=== PATIENT | female | born 1995 | race Caucasian/White ===

== ENCOUNTER 2018-06-12 09:56 | Emergency (ER) | payer SELFPAY ==
[2018-06-12 10:10] VITALS: TEMP 98.2
--- NOTE | 2018-06-12 10:13 | ED.PDOC ---
History of Present Illness - General Chief Complaint: ENT Problem Stated Complaint: sore throat,vomiting Time Seen by Provider: 06/12/18 10:13 Source: patient Exam Limitations: no limitations - History of Present Illness Initial Comments: Alie Guillermo 22 y/o female came to ER with achy throat starting this am and also vomited 5 x and had watery diarrhea x 1 .Denies ill contact;no foreign travel,;no recent antibiotics.Presently no N/V/D while in ER. Timing/Duration: abrupt, this morning Severity: moderate EENT Location: throat Prearrival Treatment: no prearrival treatment Presenting Symptoms: see hpi Improving Factors: nothing Worsening Factors: nothing Associated Symptoms: other - see hpi Allergies/Adverse Reactions: Allergies NO KNOWN ALLERGY Allergy (Verified 06/12/18 10:10) Home Medications: Ambulatory Orders Albuterol Inhaler [Ventolin Hfa Inhaler] 108 mcg IN PRN 06/12/18 Etonogestrel [Nexplanon] 68 mg SC 06/12/18 Sulfa/Trimeth 800/160 (Ds) Tab [Bactrim DS] 1 tablet PO BID #14 tab 06/12/18 predniSONE 10 mg PO BID #20 tab 06/12/18 Review of Systems - Review of Systems Constitutional: States: no symptoms reported EENTM: States: see HPI, throat pain Respiratory: States: see HPI - asthma Cardiology: States: no symptoms reported Gastrointestinal/Abdominal: States: see HPI Genitourinary: States: no symptoms reported Musculoskeletal: States: no symptoms reported Skin: States: no symptoms reported Neurological: States: no symptoms reported Endocrine: States: no symptoms reported Past Medical History (General) - Patient Medical History Hx Stroke: No Hx Asthma: Yes Hx Congestive Heart Failure: No Hx Diabetes: No Surgical History: no surgical history - Vaccination History Hx Influenza Vaccination: No - Social History Hx Tobacco Use: Yes Years Tobacco Use: 4 Cigarettes Packs Per Day: 20 - Female History Patient is a Female of Child Bearing Age (10 -59 yrs old): Yes - is on Control Hx Last Menstrual Period: 05/19/17 - Transdermal contraceptive implant Patient : No Family Medical History - Family History Mother Family History: Unknown Living Status: Unknown Hx Family Asthma: Yes - mom Hx Family Hypertension: Yes - mom Physical Exam - Physical Exam General Appearance: Alert, Comfortable, No apparent distress Eye Exam: bilateral normal Ear Exam: bilateral ear: auricle normal, canal normal, TM normal Nasal Exam: normal inspection Throat Exam: normal mouth inspection, other - pharyngeal erythema Neck: non-tender, full range of motion, supple, normal inspection, trachea midline Cardiovascular/Respiratory: regular rate, rhythm, no M/R/G, normal peripheral pulses Abdominal Exam: non-tender, no organomegaly Neurologic: no motor/sensory deficits, alert, oriented x 3 Skin Exam: normal color, warm/dry Progress - Progress Progress: 06/12/18 10:29 Vital Signs - 8 hr 06/12/18 10:07 Temperature 98.2 F Pulse Rate [ 96 H Left Brachial] Respiratory 20 Rate Blood Pressure 124/87 [Left Arm] O2 Sat by Pulse 99 Oximetry - Results/Orders Results/Orders: 06/12/18 10:21 IV Care:Saline Lock per Protoc QSHIFT 06/12/18 10:25 STREP A SCREEN CULTURE Stat Laboratory Results - last 24 hr 06/12/18 06/12/18 06/12/18 10:25 10:27 10:43 WBC 12.4 H RBC 5.26 Hgb 12.8 Hct 39.5 MCV 75.1 L MCH 24.4 L MCHC 32.5 L RDW 16.9 H Plt Count 320 MPV 8.5 Absolute Neuts (auto) 9.10 H Absolute Lymphs (auto) 2.60 Absolute Monos (auto) 0.60 Absolute Eos (auto) 0.10 Absolute Basos (auto) 0.00 Neutrophils % 73.5 Lymphocytes % 20.8 Monocytes % 4.9 Eosinophils % 0.5 L Basophils % 0.3 RBC Morphology 1+hypochromia Sodium Potassium Chloride Carbon Dioxide Anion Gap BUN Creatinine BUN/Creatinine Ratio Random Glucose Serum Osmolality Calcium Lipase Urine Color Yellow Urine Appearance Clear Urine pH 6.5 Ur Specific [place] 1.020 Urine Protein Negative Urine Glucose (UA) Negative Urine Ketones Negative Urine Blood Trace-lysed H Urine Nitrite Negative Urine Bilirubin Negative Urine Urobilinogen 0.2 Ur Leukocyte Esterase Negative Urine RBC 1-3 Urine WBC 0 Ur Epithelial Cells 1-3 Urine Bacteria 0 Urine Mucus Trace Group A Strep Rapid Negative 06/12/18 06/12/18 10:43 10:43 WBC RBC Hgb Hct MCV MCH MCHC RDW Plt Count MPV Absolute Neuts (auto) Absolute Lymphs (auto) Absolute Monos (auto) Absolute Eos (auto) Absolute Basos (auto) Neutrophils % Lymphocytes % Monocytes % Eosinophils % Basophils % RBC Morphology Sodium 137 Potassium 4.2 Chloride 107 Carbon Dioxide 23 Anion Gap 11.2 L BUN 14 Creatinine 0.74 BUN/Creatinine Ratio 18.9 Random Glucose 90 Serum Osmolality 273.8 L Calcium 9.1 Lipase 25 Urine Color Urine Appearance Urine pH Ur Specific [place] Urine Protein Urine Glucose (UA) Urine Ketones Urine Blood Urine Nitrite Urine Bilirubin Urine Urobilinogen Ur Leukocyte Esterase Urine RBC Urine WBC Ur Epithelial Cells Urine Bacteria Urine Mucus Group A Strep Rapid Discuss test result with patient strep test negative but mentioned that with her coughing her asthma might start to get worse again so discuss steroid orally and antibiotic pills Departure - Departure Clinical Impression: Sore throat and laryngitis, Cough Diarrhea Qualifiers: Diarrhea type: unspecified type Qualified Code(s): R19.7 - Diarrhea, unspecified Nausea & vomiting Qualifiers: Vomiting type: unspecified Vomiting Intractability: unspecified Qualified Code( s): R11.2 - Nausea with vomiting, unspecified Time of Disposition: 12:06 Disposition: Discharge to Home or Self Care Condition: Fair Departure Forms: ED Discharge - Pt. Copy, Patient Portal Self Enrollment Instructions: Sore Throat, Adult (DC), Viral Pharyngitis Diet: other - AVOID GREASY,SPICY FOODS UNTIL BETTER Prescriptions: predniSONE 10 mg PO BID #20 tab Sulfa/Trimeth 800/160 (Ds) Tab [Bactrim DS] 1 tablet PO BID #14 tab Home Medications: Ambulatory Orders Albuterol Inhaler [Ventolin Hfa Inhaler] 108 mcg IN PRN 06/12/18 Etonogestrel [Nexplanon] 68 mg SC 06/12/18 Sulfa/Trimeth 800/160 (Ds) Tab [Bactrim DS] 1 tablet PO BID #14 tab 06/12/18 predniSONE 10 mg PO BID #20 tab 06/12/18 Additional Instructions: NEED TO START USING YOUR ALBUEROL INHALER 2 PUFFS EVERY 4 hours as needed for cough /wheezing;return to ER as needed;Follow up with primary Md 16 June 2018
[2018-06-12] MEDS ORDERED: LEVALBUTEROL NEBS 1.25 MG/3 ML VIAL NEB ONE (10:50)
[2018-06-12 12:21] VITALS: BP 118/86; O2SAT 98
== END 2018-06-12 12:20 | disposition home or self-care (01) ==
LOC: ER 09:56
DX: J02.9 Acute pharyngitis, unspecified (principal); J04.0 Acute laryngitis; R11.2 Nausea with vomiting, unspecified; R19.7 Diarrhea, unspecified; J45.909 Unspecified asthma, uncomplicated; F17.210 Nicotine dependence, cigarettes, uncomplicated; Z79.899 Other long term (current) drug therapy
CPT/HCPCS: 36415; 80048; 81001; 83690; 85025; 87070; 87880; 94640; 99406; J7614

== ENCOUNTER 2018-11-25 07:54 | Emergency (ER) | payer SELFPAY ==
--- NOTE | 2018-11-25 08:21 | ED.PDOC ---
History of Present Illness - General Chief Complaint: GI Problem Stated Complaint: Pt complains of vomitting and stuffy nose x 3 days Time Seen by Provider: 11/25/18 08:19 Source: patient Exam Limitations: no limitations - History of Present Illness Initial Comments: Alie Guillermo 23 y/o female came to ER with intermittent nausea/vomiting for 3 days and stuffy nose.No diarrhea,no ill contact.Has history of asthma on MDI. Timing/Duration: intermittent, other - see hpi Severity: moderate Improving Factors: nothing Worsening Factors: eating Associated Symptoms: other - see hpi Allergies/Adverse Reactions: Allergies NO KNOWN ALLERGY Allergy (Verified 06/12/18 10:10) Home Medications: Ambulatory Orders Albuterol Inhaler [Ventolin Hfa Inhaler] 108 mcg IN PRN 06/12/18 Etonogestrel [Nexplanon] 68 mg SC ONCE 06/12/18 Ondansetron [Ondansetron Odt] 4 mg PO Q8HRS PRN #7 tab 11/25/18 Review of Systems - Review of Systems Constitutional: States: no symptoms reported EENTM: States: nose congestion Respiratory: States: no symptoms reported Cardiology: States: no symptoms reported Gastrointestinal/Abdominal: States: vomiting Genitourinary: States: no symptoms reported Musculoskeletal: States: no symptoms reported Skin: States: no symptoms reported All other Systems: Reviewed and Negative, No Change from Baseline Past Medical History (General) - Patient Medical History Hx Stroke: No Hx Asthma: Yes Hx of COPD: No Hx Congestive Heart Failure: No Hx Hypertension: No Hx Diabetes: No Surgical History: other - left eye surgery in childhood - Vaccination History Hx Tetanus, Diphtheria Vaccination: Yes Hx Influenza Vaccination: No Hx Pneumococcal Vaccination: No Immunizations Up to Date: Yes - Social History Hx Tobacco Use: Yes Hx Alcohol Use: Yes - socially Hx Substance Use: No Hx Substance Use Treatment: No Hx Depression: No - Activities of Daily Living Patient Lives Alone: No - Female History Patient is a Female of Child Bearing Age (10 -59 yrs old): Yes Hx Last Menstrual Period: 05/19/17 - Transdermal contraceptive implant Patient : No Family Medical History - Family History Mother Family History: Unknown Living Status: Unknown Hx Family Asthma: Yes - mom Hx Family Hypertension: Yes - mom Physical Exam - Physical Exam General Appearance: Alert, Comfortable, No apparent distress Eye Exam: bilateral normal Ears, Nose, Throat: hearing grossly normal, normal ENT inspection, normal pharynx, nasal congestion Neck: non-tender, supple Respiratory: chest non-tender, lungs clear, normal breath sounds Cardiovascular/Chest: normal peripheral pulses, regular rate, rhythm, no murmur Peripheral Pulses: radial,right: 2+, radial,left: 2+ Gastrointestinal/Abdominal: soft, no organomegaly Back Exam: no CVA tenderness, no vertebral tenderness Extremity: no pedal edema, no calf tenderness Neurologic: alert, oriented x 3 Skin Exam: normal color, warm/dry Progress - Progress Progress: 11/25/18 08:24 Vital Signs - 24 hr 11/25/18 08:10 Temperature 98.3 F Pulse Rate [ 98 H Right Radial] Respiratory 18 Rate O2 Sat by Pulse 97 Oximetry - Results/Orders Results/Orders: 11/25/18 08:25 Oxymetazoline Nasal Fortine [Afrin Nasal Fortine] 2 spray BNAS BID PRN 11/25/18 08:50 Urine Culture Stat Laboratory Results - last 24 hr 11/25/18 11/25/18 11/25/18 08:30 08:30 08:50 WBC 9.8 RBC 5.37 Hgb 13.7 Hct 41.7 MCV 77.7 L MCH 25.6 L MCHC 32.9 L RDW 16.0 H Plt Count 247 MPV 8.7 Absolute Neuts (auto) 6.80 Absolute Lymphs (auto) 2.20 Absolute Monos (auto) 0.60 Absolute Eos (auto) 0.10 Absolute Basos (auto) 0.00 Neutrophils % 70.0 Lymphocytes % 23.0 Monocytes % 5.9 Eosinophils % 0.7 L Basophils % 0.4 Sodium 136 Potassium 4.1 Chloride 105 Carbon Dioxide 21 Anion Gap 14.1 BUN 12 Creatinine 0.65 BUN/Creatinine Ratio 18.5 Random Glucose 98 Serum Osmolality 271.7 L Calcium 9.0 Total Bilirubin 0.8 AST 19 ALT 17 Alkaline Phosphatase 104 Serum Total Protein 7.8 Albumin 3.9 Globulin 3.9 H Albumin/Globulin Ratio 1.0 L Lipase 30 Urine Color Yellow Urine Appearance Sl cloudy Urine pH 7.0 Ur Specific [place] 1.020 Urine Protein Negative Urine Glucose (UA) Negative Urine Ketones Negative Urine Blood Negative Urine Nitrite Negative Urine Bilirubin Negative Urine Urobilinogen 0.2 Ur Leukocyte Esterase Small H Urine RBC 0 Urine WBC 1-3 Ur Epithelial Cells 3-5 Urine Bacteria Rare Urine HCG, Qual 11/25/18 08:58 WBC RBC Hgb Hct MCV MCH MCHC RDW Plt Count MPV Absolute Neuts (auto) Absolute Lymphs (auto) Absolute Monos (auto) Absolute Eos (auto) Absolute Basos (auto) Neutrophils % Lymphocytes % Monocytes % Eosinophils % Basophils % Sodium Potassium Chloride Carbon Dioxide Anion Gap BUN Creatinine BUN/Creatinine Ratio Random Glucose Serum Osmolality Calcium Total Bilirubin AST ALT Alkaline Phosphatase Serum Total Protein Albumin Globulin Albumin/Globulin Ratio Lipase Urine Color Urine Appearance Urine pH Ur Specific [place] Urine Protein Urine Glucose (UA) Urine Ketones Urine Blood Urine Nitrite Urine Bilirubin Urine Urobilinogen Ur Leukocyte Esterase Urine RBC Urine WBC Ur Epithelial Cells Urine Bacteria Urine HCG, Qual Negative Discuss all test results with patient Departure - Departure Clinical Impression: Viral illness Time of Disposition: 09:40 Disposition: Discharge to Home or Self Care Condition: Fair Departure Forms: ED Discharge - Pt. Copy, Patient Portal Self Enrollment Instructions: Viral Upper Respiratory Infection, Adult (DC), Viral [place] stroenteritis, Adult (DC), [place] Diet Diet: bland diet, other - Avoid greasy spicy foods until better Prescriptions: Ondansetron [Ondansetron Odt] 4 mg PO Q8HRS PRN #7 tab PRN Reason: Nausea Home Medications: Ambulatory Orders Albuterol Inhaler [Ventolin Hfa Inhaler] 108 mcg IN PRN 06/12/18 Etonogestrel [Nexplanon] 68 mg SC ONCE 06/12/18 Ondansetron [Ondansetron Odt] 4 mg PO Q8HRS PRN #7 tab 11/25/18 Additional Instructions: Continue with Oxymetazoline nose Fortine 2 sprays each nose am/pm 3 days on 3 days off as needed for nasal congestion;May also use OVER THE COUNTER-cough /cold medicine as directed on package;Nasal saline spray-as needed for nasal congestion;Continue with all home medications
[2018-11-25] MEDS ORDERED: OXYMETAZOLINE NASAL SPRAY 15 ML BTTL BNAS PRN (08:25)
[2018-11-25] MEDS ORDERED: LACTATED RINGERS 1,000 ML IVS ONE (08:25)
[2018-11-25] MEDS ORDERED: DEXAMETHASONE INJ 4 MG/ML VIAL IV ONE (08:26)
[2018-11-25 10:12] VITALS: BP 131/87; TEMP 98.7; O2SAT 99
== END 2018-11-25 10:11 | disposition home or self-care (01) ==
LOC: ER 07:54
DX: B34.9 Viral infection, unspecified (principal); J45.909 Unspecified asthma, uncomplicated; Z87.891 Personal history of nicotine dependence; Z79.899 Other long term (current) drug therapy
CPT/HCPCS: 36415; 80053; 81001; 81025; 83690; 85025; 87086; J1100; J7120

== ENCOUNTER 2019-09-18 09:05 | Emergency (ER) | payer SELFPAY ==
[2019-09-18] MEDS: ALBUTEROL SULFATE 2.5 MG/3 ML VIAL NEB ONE (09:38)
--- NOTE | 2019-09-18 09:44 | ED.PDOC ---
History of Present Illness - General Chief Complaint: Respiratory Problem Stated Complaint: Cough Time Seen by Provider: 09/18/19 09:30 Source: patient, RN notes reviewed, Vital Signs reviewed, EMS notes reviewed, family - Significant other Exam Limitations: no limitations - History of Present Illness Initial Comments: Patient is a 24-year-old white female who presents with complaints of cough and fever for the last few days. Patient states the cough is unremitting. Nothing makes it better. Worse with deep inspiration or exertion. Patient is also short of breath. This shortness of breath is worse with exertion. Patient also complains of fever. The fever has been responsive to Tylenol Motrin. Cough is minimally productive with a thick clear/greenish sputum. The cough causes some mild chest pain. The pain is sharp and stabbing in nature. It is worse with deep inspiration or cough. It is moderate in intensity. Timing/Duration: other - 3 to 4 days Severity: moderate Activities at Onset: none Improving Factors: nothing Worsening Factors: movement, other - Deep breaths Associated Symptoms: chest pain - Sharp and stabbing in nature, cough, fever Respiratory Risk Factors: no cause identified Allergies/Adverse Reactions: Allergies NO KNOWN ALLERGY Allergy (Verified 09/18/19 09:23) Home Medications: Ambulatory Orders Albuterol Inhaler [Ventolin Hfa Inhaler] 108 mcg IN PRN 06/12/18 Albuterol Sulfate Nebs [Proventil Nebs] 2.5 mg INH Q4H PRN 09/18/19 Guaifenesin-Codeine [Guaifenesin AC] 10 ml PO Q6HR PRN #180 ml 09/18/19 Review of Systems - Review of Systems Constitutional: States: see HPI, diaphoresis, fever, malaise EENTM: States: no symptoms reported Respiratory: States: see HPI, cough, short of breath Cardiology: States: see HPI, chest pain. Denies: edema, palpitations, syncope Gastrointestinal/Abdominal: States: no symptoms reported Musculoskeletal: States: no symptoms reported Skin: States: other - Patient with diaphoresis Endocrine: States: no symptoms reported Hematologic/Lymphatic: States: no symptoms reported All other Systems: Reviewed and Negative Past Medical History (General) - Patient Medical History Hx Stroke: No Hx Asthma: Yes Hx of COPD: No Hx Congestive Heart Failure: No Hx Hypertension: No Hx Diabetes: No - Vaccination History Hx Tetanus, Diphtheria Vaccination: Yes Hx Influenza Vaccination: No Hx Pneumococcal Vaccination: No - Social History Hx Tobacco Use: Yes Hx Alcohol Use: Yes - socially Hx Substance Use: No Hx Substance Use Treatment: No Hx Depression: No - Female History Hx Last Menstrual Period: 05/19/17 - Transdermal contraceptive implant Patient : No Family Medical History - Family History Mother Family History: Unknown Living Status: Unknown Hx Family Asthma: Yes - mom Hx Family Hypertension: Yes - mom Physical Exam - Physical Exam General Appearance: Alert, Anxious, Obvious distress, Obese, Well Developed, Well Groomed, Well Hydrated, Well Nourished Eyes, Ears, Nose, Throat Exam: PERRL/EOMI, normal ENT inspection, pharynx normal Neck: non-tender, full range of motion, supple, normal inspection Respiratory: chest non-tender, no accessory muscle use, respiratory distress - Mild, rhonchi - Rhonchi diffusely throughout Cardiovascular/Chest: normal peripheral pulses, no edema, no gallop, no JVD, no murmur, tachycardia Peripheral Pulses: radial,right: 2+, radial,left: 2+ Gastrointestinal/Abdominal: normal bowel sounds, non tender, soft, no organomeg bailee, no pulsatile mass Extremity: normal range of motion, non-tender, normal inspection, no pedal edema 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 09/18/19 10:55 Patient is improved after neb treatments. Her cough is improved after the guaifenesin with codeine. Plan on discharge home. Patient does have influenza B. She is 3 days of symptoms and therefore is outside the window for treatment with Tamiflu. I have discussed this plan of care with the patient and her significant other and they voiced understanding and agreement with the plan of care. - Results/Orders Results/Orders: EXAM DESCRIPTION: Chest,2 Views CLINICAL HISTORY: cough COMPARISON: None TECHNIQUE: PA/lateral FINDINGS: There is no acute appearing cardiac or pulmonary abnormality. Heart size is normal with normal pulmonary vascularity. No pleural effusion or pneumothorax. Lungs are clear with no consolidating infiltrate. Lateral view shows intact sternum and T-spine. IMPRESSION: No acute process is identified in the chest. Electronically signed by: Raymond Cooper MD 09/18/2019 10:43 09/18/19 09:30 Telemetry .ONCE Sodium Chloride 0.9% (Flush) [Saline Flush Syringe] 10 ml IV PRN PRN Sodium Chloride 0.9% 1000ML [Ns 1000 ml] 1,000 ml IVS .QD EKG STAT 09/19/19 09:00 Pulse Ox Daily 09/19/19 09:30 EKG STAT Laboratory Results - last 24 hr 09/18/19 09/18/19 09/18/19 09:56 09:56 09:56 WBC 5.7 RBC 5.12 Hgb 13.5 Hct 40.2 MCV 78.5 L MCH 26.4 L MCHC 33.6 RDW 15.0 H Plt Count 237 MPV 9.0 Absolute Neuts (auto) 3.90 Absolute Lymphs (auto) 1.00 Absolute Monos (auto) 0.80 Absolute Eos (auto) 0.00 Absolute Basos (auto) 0.00 Neutrophils % 67.6 Lymphocytes % 17.9 L Monocytes % 13.8 H Eosinophils % 0.4 L Basophils % 0.3 Sodium 136 Potassium 3.5 L Chloride 100 L Carbon Dioxide 24 Anion Gap 15.5 BUN 8 Creatinine 0.86 BUN/Creatinine Ratio 9.3 L Random Glucose 110 H Serum Osmolality 270.9 L Lactic Acid 1.8 Calcium 9.3 Total Bilirubin 0.4 AST 22 ALT 15 Alkaline Phosphatase 77 Serum Total Protein 8.1 Albumin 3.9 Globulin 4.2 H Albumin/Globulin Ratio 0.9 L Serum HCG, Qual 09/18/19 09:56 WBC RBC Hgb Hct MCV MCH MCHC RDW Plt Count MPV Absolute Neuts (auto) Absolute Lymphs (auto) Absolute Monos (auto) Absolute Eos (auto) Absolute Basos (auto) Neutrophils % Lymphocytes % Monocytes % Eosinophils % Basophils % Sodium Potassium Chloride Carbon Dioxide Anion Gap BUN Creatinine BUN/Creatinine Ratio Random Glucose Serum Osmolality Lactic Acid Calcium Total Bilirubin AST ALT Alkaline Phosphatase Serum Total Protein Albumin Globulin Albumin/Globulin Ratio Serum HCG, Qual Negative Departure - Departure Clinical Impression: Influenza B, Hypokalemia with shifts of fluid from extracellular to intracellular space, Acute bronchospasm Time of Disposition: 10:58 Disposition: Discharge to Home or Self Care Condition: Good Departure Forms: ED Discharge - Pt. Copy, ED Discharge - Work Release, Patient Portal Self Enrollment Instructions: Flu, Adult (DC) Prescriptions: Guaifenesin-Codeine [Guaifenesin AC] 10 ml PO Q6HR PRN #180 ml PRN Reason: Cough Home Medications: Ambulatory Orders Albuterol Inhaler [Ventolin Hfa Inhaler] 108 mcg IN PRN 06/12/18 Albuterol Sulfate Nebs [Proventil Nebs] 2.5 mg INH Q4H PRN 09/18/19 Guaifenesin-Codeine [Guaifenesin AC] 10 ml PO Q6HR PRN #180 ml 09/18/19
[2019-09-18] MEDS: guaiFENesin W/CODEINE LIQ 10 ML UD PO ONE (09:57)
[2019-09-18] MEDS: SODIUM CHLORIDE 0.9% 1000ML 1,000 ML IVS PRN (09:57)
[2019-09-18] MEDS: SODIUM CHLORIDE 0.9% (FLUSH) 10 ML SYG IV PRN (10:30)
--- NOTE | 2019-09-18 10:44 | RAD ---
EXAM DESCRIPTION: Chest,2 Views CLINICAL HISTORY: cough COMPARISON: None TECHNIQUE: PA/lateral FINDINGS: There is no acute appearing cardiac or pulmonary abnormality. Heart size is normal with normal pulmonary vascularity. No pleural effusion or pneumothorax. Lungs are clear with no consolidating infiltrate. Lateral view shows intact sternum and T-spine. IMPRESSION: No acute process is identified in the chest. 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
[2019-09-18 11:19] VITALS: BP 110/79; TEMP 98; O2SAT 97
== END 2019-09-18 11:10 | disposition home or self-care (01) ==
LOC: ER 09:05
DX: J10.1 Influenza due to other identified influenza virus with other respiratory manifestations (principal); E87.6 Hypokalemia; J98.01 Acute bronchospasm; J45.909 Unspecified asthma, uncomplicated; Z79.899 Other long term (current) drug therapy; Z87.891 Personal history of nicotine dependence
CPT/HCPCS: 71046; 80053; 83605; 84703; 85025; 87502; 94640; 94760; J7030; J7611

== ENCOUNTER 2020-09-16 08:48 | Emergency (ER) | payer SELFPAY ==
--- NOTE | 2020-09-16 09:11 | ED.PDOC ---
History of Present Illness - General Chief Complaint: Abdominal Pain Stated Complaint: stabbing abdominal pain Time Seen by Provider: 09/16/20 08:55 Information Source: patient, RN notes reviewed, Vital Signs reviewed Exam Limitations: no limitations - History of Present Illness Initial Comments: This is a 25-year-old female with past medical history of asthma presenting to the emergency department with upper abdominal pain that began yesterday morning and has progressively worsened over the past 24 hours. Patient localizes the pain to the epigastric and left upper quadrant area. No history of similar pain. She she does have a persistent cough that is been present since she was diagnosed with Covid on August 24, 2020. She denies any new changes in her cough. She states she does have some nausea associated with the pain and with coughing, but denies any vomiting or diarrhea. She denies any recent alcohol use. She denies any regular NSAID use. She has not taken anything for the pain at home. She states she is in the emergency department today, because she was sent home from work earlier today. 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 Abdominal Pain Onset Location: LUQ, epigastric Review of Systems - Review of Systems Constitutional: Denies: chills, fever EENTM: Denies: ear pain, nose congestion, throat pain Respiratory: States: cough. Denies: short of breath, stridor, wheezing Cardiology: Denies: chest pain, edema, palpitations Gastrointestinal/Abdominal: States: abdominal pain, nausea. Denies: constipati on, diarrhea, vomiting Musculoskeletal: Denies: joint pain, joint swelling, muscle stiffness, neck pain Skin: Denies: dryness, rash Neurological: Denies: numbness, weakness Endocrine: States: no symptoms reported Hematologic/Lymphatic: States: no symptoms reported Past Medical History (General) - Patient Medical History Hx Stroke: No Hx Asthma: Yes Hx of COPD: No Hx Congestive Heart Failure: No Hx Hypertension: No Hx Diabetes: No - Vaccination History Hx Tetanus, Diphtheria Vaccination: Yes Hx Influenza Vaccination: No Hx Pneumococcal Vaccination: No - Social History Hx Tobacco Use: Yes Hx Alcohol Use: Yes - socially Hx Substance Use: No Hx Substance Use Treatment: No Hx Depression: No - Female History Hx Last Menstrual Period: 05/19/17 - Transdermal contraceptive implant Patient : No Family Medical History - Family History Mother Family History: Unknown Living Status: Unknown Hx Family Asthma: Yes - mom Hx Family Hypertension: Yes - mom Physical Exam - Physical Exam General Appearance: Alert, Comfortable, No apparent distress, Obese, Well Groomed, Well Hydrated, Well Nourished Eyes, Ears, Nose, Throat Exam: PERRL/EOMI, normal ENT inspection Neck: non-tender, full range of motion, supple Respiratory: lungs clear, normal breath sounds, no respiratory distress Cardiovascular/Chest: normal peripheral pulses, no edema, no gallop, no JVD, tachycardia Gastrointestinal/Abdominal: soft, tenderness - Midepigastric, left upper quadrant Back Exam: normal inspection, no CVA tenderness, no vertebral tenderness Extremity: normal range of motion, non-tender, normal inspection Neurologic: no motor/sensory deficits, alert, normal mood/affect, oriented x 3 Skin Exam: normal color, warm/dry Progress - Progress Progress: 09/16/20 11:02 Rechecked. Patient feeling much better. Pain improving. Heart rate improved to 85. Discussed elevated white blood cell count and abnormal urinalysis. Urine culture is pending at this time. Discussed negative CT report. I explained that her leukocytosis may be related to her urinary tract infection, but this will need to be followed up with the primary care doctor in 2 to 3 days to ensure resolution after completion of antibiotics. Strict warnings were given to return to the emergency room for worsening pain, fever, intractable vomiting, vomiting blood/blood in stool, or any other concerns. DDx: UTI, diverticulitis, gastritis, pancreatitis, PID, ovarian cyst MDM: 25-year-old healthy female with epigastric, left upper quadrant, left lower quadrant pain. UA is abnormal, concerning for possible pyelonephritis. She denies any dysuria. No history of frequent UTIs. She denies any vaginal discharge or bleeding. She recently was diagnosed with Covid 3 to 4 weeks ago, she states she has a persistent mild cough, although other symptoms seem to have resolved. No vomiting/diarrhea. No report of GI bleeding. Urine culture is pending. She does have a fairly marked leukocytosis at 31,000. Etiology is unclear, may be related to UTI, although no other infectious sources have been identified. She was initially tachycardic in the 110s, but this improved with IV fluids and pain control. Pain is well controlled at this time. She is tolerating p.o. I recommended she follow-up with PCP in 2 to 3 days for recheck and to follow leukocytosis resolution upon completion of antibiotics. Strict ER warnings were given. Gus Chavarria DO [facility][id number] - Results/Orders Results/Orders: 09/16/20 09:02 Sodium Chloride 0.9% (Flush) [Saline Flush Syringe] 10 ml IV PRN PRN Sodium Chloride 0.9% 1000ML [Ns 1000 ml] 1,000 ml IVS .QD 09/16/20 09:12 CBC (AUTOMATED) W/AUTO DIFF Stat DIFFERENTIAL,MANUAL BY FLAGS Stat URINE CULTURE W/COLONY COUNT Stat Laboratory Results - last 24 hr 09/16/20 09/16/20 09/16/20 09:12 09:12 09:12 WBC 31.9 H* RBC 4.77 Hgb 12.5 Hct 37.4 MCV 78.4 L MCH 26.1 L MCHC 33.3 RDW 15.3 H Plt Count 309 MPV 8.6 Absolute Neuts (auto) Not Reportable Absolute Lymphs (auto) Not Reportable Absolute Monos (auto) Not Reportable Absolute Eos (auto) Not Reportable Neutrophils % Not Reportable Neutrophils % (Manual) 85.0 H Lymphocytes % Not Reportable Lymphocytes % (Manual) 10.0 Monocytes % Not Reportable Monocytes % (Manual) 1.0 Eosinophils % Not Reportable Basophils % Not Reportable Band Neutrophils 4.0 H Platelet Estimate Normal Normal RBC Morphology Normal rbc morph Sodium 136 Potassium 3.8 Chloride 100 L Carbon Dioxide 25 Anion Gap 14.8 BUN 12 Creatinine 0.83 BUN/Creatinine Ratio 14.5 Random Glucose 103 Serum Osmolality 272.0 L Calcium 8.8 Total Bilirubin 0.9 Direct Bilirubin 0.2 Indirect Bilirubin 0.7 AST 14 ALT 19 Alkaline Phosphatase 89 Serum Total Protein 8.4 H Albumin 4.0 Lipase 26 Serum HCG, Qual Negative Urine Color Urine Appearance Urine pH Ur Specific [place] Urine Protein Urine Glucose (UA) Urine Ketones Urine Blood Urine Nitrite Urine Bilirubin Urine Urobilinogen Ur Leukocyte Esterase Urine RBC Urine WBC Ur Epithelial Cells Urine Bacteria Urine Mucus 09/16/20 09:12 WBC RBC Hgb Hct MCV MCH MCHC RDW Plt Count MPV Absolute Neuts (auto) Absolute Lymphs (auto) Absolute Monos (auto) Absolute Eos (auto) Neutrophils % Neutrophils % (Manual) Lymphocytes % Lymphocytes % (Manual) Monocytes % Monocytes % (Manual) Eosinophils % Basophils % Band Neutrophils Platelet Estimate Normal RBC Morphology Sodium Potassium Chloride Carbon Dioxide Anion Gap BUN Creatinine BUN/Creatinine Ratio Random Glucose Serum Osmolality Calcium Total Bilirubin Direct Bilirubin Indirect Bilirubin AST ALT Alkaline Phosphatase Serum Total Protein Albumin Lipase Serum HCG, Qual Urine Color Yellow Urine Appearance Clear Urine pH 6.5 Ur Specific [place] 1.020 Urine Protein Trace Urine Glucose (UA) Negative Urine Ketones Negative Urine Blood Large H Urine Nitrite Negative Urine Bilirubin Negative Urine Urobilinogen 0.2 Ur Leukocyte Esterase Small H Urine RBC 10-20 H Urine WBC 30-40 H Ur Epithelial Cells 5-10 Urine Bacteria 1+ Urine Mucus Small EXAM: CT ABDOMEN AND PELVIS WITH CONTRAST HISTORY: LUQ pain, leukocytosis. TECHNIQUE: Axial CT images of the abdomen and pelvis were obtained with intraven ous contrast and without oral contrast. Sagittal and coronal reformats were rendered. The CT exam was performed using one or more of the following dose reduction techniques: Automated exposure control, adjustment of the mA and/or kV according to patient size, and/or use of iterative reconstruction technique. COMPARISON: None. FINDINGS: ABDOMEN: Lung bases: Clear. Liver: No focal lesion. No intrahepatic biliary duct dilatation. Gallbladder: Nondistended. Spleen: Subcentimeter cyst superiorly in the spleen. Pancreas: Normal. Adrenal glands: Normal. Kidneys: Normal. No hydronephrosis. Vasculature: No aortic aneurysm or dissection. Lymph nodes: No lymphadenopathy. Bowel: Unremarkable. No bowel obstruction. Appendix: Normal. PELVIS: Bladder: No bladder wall thickening. BONES: No acute bone abnormality of the abdomen or pelvis. IMPRESSION: No acute abdominal or pelvic finding. Electronically signed by: Mars Miles MD 09/16/2020 10:35 AM Departure - Departure Clinical Impression: Pyelonephritis Abdominal pain Qualifiers: Abdominal location: left upper quadrant Qualified Code(s): R10.12 - Left upper quadrant pain Time of Disposition: 11:01 Disposition: Discharge to Home or Self Care Condition: Good Departure Forms: ED Discharge - Pt. Copy, ED Discharge - Work Release, Patient Portal Self Enrollment Instructions: DI for Abdominal Pain-Adult, Kidney Infection (DC), Abdominal Pain, Adult ED Diet: resume usual diet Activity: increase activity as tolerated Prescriptions: Sulfamethoxazole-Trimethoprim [Bactrim Ds 800-160 mg] 1 tab PO BID #20 tab Acetamin W/Cod #3 Tab [Tylenol w/CODEINE #3] 1 - 2 tablet PO Q6H PRN #20 tab PRN Reason: Moderate To Severe Pain Ondansetron Odt [Zofran ODT] 4 - 8 mg PO Q6H PRN #15 tab PRN Reason: Nausea Home Medications: Ambulatory Orders Albuterol Inhaler [Ventolin Hfa Inhaler] 108 mcg IN PRN 06/12/18 Albuterol Sulfate Nebs [Proventil Nebs] 2.5 mg INH Q4H PRN 09/18/19 Acetamin W/Cod #3 Tab [Tylenol w/CODEINE #3] 1 - 2 tablet PO Q6H PRN #20 tab 09/16/20 Ondansetron Odt [Zofran ODT] 4 - 8 mg PO Q6H PRN #15 tab 09/16/20 Sulfamethoxazole-Trimethoprim [Bactrim Ds 800-160 mg] 1 tab PO BID #20 tab 09/16/20
[2020-09-16] MEDS: SODIUM CHLORIDE 0.9% 1000ML 1,000 ML IVS PRN (09:19)
[2020-09-16] MEDS: ONDANSETRON INJ 4 MG/2 ML VIAL IV ONE (09:19)
[2020-09-16] MEDS: KETOROLAC TROMETHAMINE INJ 30 MG/ML VIAL IV ONE (09:20)
[2020-09-16] MEDS: SODIUM CHLORIDE 0.9% (FLUSH) 10 ML SYG IV PRN (09:20)
--- NOTE | 2020-09-16 10:36 | CT ---
EXAM: CT ABDOMEN AND PELVIS WITH CONTRAST HISTORY: LUQ pain, leukocytosis. TECHNIQUE: Axial CT images of the abdomen and pelvis were obtained with intravenous contrast and without oral contrast. Sagittal and coronal reformats were rendered. The CT exam was performed using one or more of the following dose reduction techniques: Automated exposure control, adjustment of the mA and/or kV according to patient size, and/or use of iterative reconstruction technique. COMPARISON: None. FINDINGS: ABDOMEN: Lung bases: Clear. Liver: No focal lesion. No intrahepatic biliary duct dilatation. Gallbladder: Nondistended. Spleen: Subcentimeter cyst superiorly in the spleen. Pancreas: Normal. Adrenal glands: Normal. Kidneys: Normal. No hydronephrosis. Vasculature: No aortic aneurysm or dissection. Lymph nodes: No lymphadenopathy. Bowel: Unremarkable. No bowel obstruction. Appendix: Normal. PELVIS: Bladder: No bladder wall thickening. BONES: No acute bone abnormality of the abdomen or pelvis. IMPRESSION: No acute abdominal or pelvic finding. Electronically signed by: Mars Miles MD 09/16/2020 10:35 AM [facility]
[2020-09-16] MEDS: cefTRIAXone SODIUM 1 GM in SODIUM CHL 0.9% 50ML MIN-BAG+ 50 ML IVPB ONE (10:43)
[2020-09-16 11:46] VITALS: BP 110/59; TEMP 98; O2SAT 100
== END 2020-09-16 11:30 | disposition home or self-care (01) ==
LOC: ER 08:48
DX: N12 Tubulo-interstitial nephritis, not specified as acute or chronic (principal); R10.12 Left upper quadrant pain; R10.13 Epigastric pain; J45.909 Unspecified asthma, uncomplicated; R05 Cough; Z86.16 Personal history of COVID-19; Z87.891 Personal history of nicotine dependence